=== PATIENT | male | born 1955 | race African-American/Black ===

== ENCOUNTER 2016-12-19 21:07 | Emergency (ER) | payer MEDICARE, MEDICAID ==
[~2016-12-19] VITALS: Ht 182.9 cm; Wt 80.7 kg
[2016-12-19 23:26] VITALS: BP 137/75
== END 2016-12-19 23:34 | disposition home or self-care (01) ==
LOC: ER 21:09
DX: L30.9 Dermatitis, unspecified (principal); I10 Essential (primary) hypertension
CPT/HCPCS: 99283; A4606; Z7610